=== PATIENT | female | born 1970 | race Caucasian/White ===

== ENCOUNTER 2019-11-20 23:04 | Observation (INO) | payer BC ==
[~2019-11-20] VITALS: Ht 170.2 cm; Wt 78.5 kg
[2019-11-20 14:30] VITALS: BP 136/92
--- NOTE | 2019-11-20 23:17 | PHYS DOC ---
Adult General HPI HPI 49-year-old female presents to the emergency department with complaints of syncope. [place] and subsequently became short of breath, nauseous, dizzy and weak. states she passed out for approximately 30 seconds. She denies any fever or abdominal discomfort at this time however states she thinks she has urinary tract infection. Blood pressure currently 106/65, heart rate 75. Nothing makes her symptoms worse, nothing makes her symptoms better on exam. Patient denies headache or visual changes at this time. Review of Systems Review of Systems Constitutional: Denies fever or chills [] Respiratory: Denies cough or shortness of breath [] Cardiovascular: No additional information not addressed in HPI [] GI: Denies abdominal pain, nausea, vomiting, bloody stools or diarrhea [] : + dysuria Musculoskeletal: Denies back pain or joint pain [] Integument: Denies rash or skin lesions [] Neurologic: Denies headache, focal weakness or sensory changes [] All other systems were reviewed and found to be within normal limits, except as documented in this note. Current Medications Current Medications Current Medications Medications (Trade) Dose Ordered Sig/Hernán Start Time Stop Time Status Last Admin Dose Admin Potassium Chloride (Klor-Con) 40 meq 1X ONCE 11/21/19 02:00 11/21/19 02:01 Sodium Chloride 1,000 ml @ 1,000 mls/hr 1X ONCE 11/21/19 01:30 11/21/19 02:29 11/21/19 01:26 1,000 MLS/HR Allergies Allergies Allergies Coded Allergies Type Severity Reaction Last Updated Verified Iodinated Contrast Media Adverse Reaction Intermediate 11/21/19 Yes Penicillins Adverse Reaction Intermediate 11/21/19 Yes Sulfa (Sulfonamide Antibiotics) Adverse Reaction Intermediate 11/21/19 Yes Physical Exam Physical Exam Constitutional: Well developed, well nourished, pale, non-toxic appearance. [] HENT: Normocephalic, atraumatic, bilateral external ears normal, oropharynx moist, no oral exudates, nose normal. [] Eyes: PERRLA, EOMI, conjunctiva normal, no discharge. [] Cardiovascular:Heart rate regular rhythm, no murmur [] Lungs & Thorax: Bilateral breath sounds clear to auscultation [] Abdomen: Bowel sounds normal, soft, no tenderness, no masses, no pulsatile masses. [] Skin: Warm, dry, no erythema, no rash. [] Back: No tenderness, no CVA tenderness. [] Extremities: No tenderness, no edema. [] Neurologic: Alert and oriented X 3, no focal deficits noted. [] Psychologic: Affect normal, judgement normal, mood normal. [] Current Patient Data Vital Signs Vital Signs Date Time Temp Pulse Resp B/P (MAP) Pulse Ox O2 Delivery O2 Flow Rate FiO2 11/21/19 00:30 80 15 97 Room Air 11/21/19 00:00 109/74 (86) 11/20/19 23:05 98.8 98.8 Lab Values Laboratory Tests Test 11/20/19 23:15 11/21/19 00:21 White Blood Count 9.8 x10^3/uL (4.0-11.0) Red Blood Count 4.32 x10^6/uL (3.50-5.40) Hemoglobin 12.9 g/dL (12.0-15.5) Hematocrit 38.6 % (36.0-47.0) Mean Corpuscular Volume 89 fL (79-100) Mean Corpuscular Hemoglobin 30 pg (25-35) Mean Corpuscular Hemoglobin Concent 33 g/dL (31-37) Red Cell Distribution Width 13.2 % (11.5-14.5) Platelet Count 255 x10^3/uL (140-400) Neutrophils (%) (Auto) 34 % (31-73) Lymphocytes (%) (Auto) 51 % (24-48) H Monocytes (%) (Auto) 8 % (0-9) Eosinophils (%) (Auto) 7 % (0-3) H Basophils (%) (Auto) 0 % (0-3) Neutrophils # (Auto) 3.3 x10^3/uL (1.8-7.7) Lymphocytes # (Auto) 5.0 x10^3/uL (1.0-4.8) H Monocytes # (Auto) 0.8 x10^3/uL (0.0-1.1) Eosinophils # (Auto) 0.7 x10^3/uL (0.0-0.7) Basophils # (Auto) 0.0 x10^3/uL (0.0-0.2) Lactic Acid Level 2.7 mmol/L (0.4-2.0) H D-Dimer (Anel) < 0.27 ug/mlFEU Sodium Level 146 mmol/L (136-145) H Potassium Level 2.7 mmol/L (3.5-5.1) *L Chloride Level 112 mmol/L (98-107) H Carbon Dioxide Level 26 mmol/L (21-32) Anion Gap 8 (6-14) Blood Urea Nitrogen 11 mg/dL (7-20) Creatinine 0.6 mg/dL (0.6-1.0) Estimated GFR (Cockcroft-Gault) 105.4 BUN/Creatinine Ratio 18 (6-20) Glucose Level 83 mg/dL (70-99) Calcium Level 7.2 mg/dL (8.5-10.1) L Total Bilirubin 0.1 mg/dL (0.2-1.0) L Aspartate Amino Transferase (AST) 13 U/L (15-37) L Alanine Aminotransferase (ALT) 14 U/L (14-59) Alkaline Phosphatase 60 U/L (46-116) Total Protein 5.5 g/dL (6.4-8.2) L Albumin 2.8 g/dL (3.4-5.0) L Albumin/Globulin Ratio 1.0 (1.0-1.7) Laboratory Tests 11/20/19 23:15 Laboratory Tests 11/21/19 00:21 EKG EKG EKG reviewed 2340, NSR, LAD, NO STEMI[] Radiology/Procedures Radiology/Procedures [] Course & Med Decision Making Course & Med Decision Making Pertinent Labs and Imaging studies reviewed. (See chart for details) []49-year-old female presents to the emergency department with complaints of syncope. Patient [place] and subsequentl y became short of breath, nauseous, dizzy and weak. states she passed out for approximately 30 seconds. She denies any fever or abdominal discomfort at this time however states she thinks she has urinary tract infection. Blood pressure currently 106/65, heart rate 75. Nothing makes her symptoms worse, nothing makes her symptoms better on exam. Patient denies headache or visual changes at this time. Dragon Disclaimer Dragon Disclaimer This electronic medical record was generated, in whole or in part, using a voice recognition dictation system. Departure Departure Impression: Primary Impression: Syncope and collapse Additional Impressions: Hypokalemia Lactic acidosis Disposition: ADMITTED INPATIENT Admitting Physician: LISA Condition: IMPROVED Problem Qualifiers HERMANN MAN MD Nov 20, 2019 23:16
[2019-11-20 23:41] LABS: BASO % 0 % (0-3); EOS # 0.7 x10^3/uL (0.0-0.7); EOS % 7 % (0-3); HEMATOCRIT 38.6 % (36.0-47.0); HEMOGLOBIN 12.9 g/dL (12.0-15.5); LYMPH % 51 % (24-48); MEAN CORPUSCULAR HEMOGLOBIN 30 pg (25-35); MEAN CORPUSCULAR HGB CONC 33 g/dL (31-37); MEAN CORPUSCULAR VOLUME 89 fL (79-100); MONO # 0.8 x10^3/uL (0.0-1.1); MONO % 8 % (0-9); NEUT # 3.3 x10^3/uL (1.8-7.7); NEUT % 34 % (31-73); PLATELET COUNT 255 x10^3/uL (140-400); RED BLOOD COUNT 4.32 x10^6/uL (3.50-5.40); RED CELL DISTRIBUTION WIDTH 13.2 % (11.5-14.5); WHITE BLOOD COUNT 9.8 x10^3/uL (4.0-11.0)
[2019-11-21] VITALS (9 sets, daily range): BP systolic 132–148; BP diastolic 73–95
[2019-11-21] MEDS ORDERED: IV NORMAL SALINE 1000ML BAG 1,000 ML IV ONE ×2 (00:30→01:30)
[2019-11-21 01:22] LABS: ALBUMIN 2.8 g/dL (3.4-5.0); CALCIUM 7.2 mg/dL (8.5-10.1); CREATININE 0.6 mg/dL (0.6-1.0); GFR 105.4; TOTAL BILIRUBIN 0.1 mg/dL (0.2-1.0); TOTAL PROTEIN 5.5 g/dL (6.4-8.2)
[2019-11-21 01:24] LABS: POTASSIUM 2.7 mmol/L (3.5-5.1)
[2019-11-21] MEDS ORDERED: POTASSIUM CHLORIDE 20 MEQ TABLET.ER. PO ONE (02:00)
[2019-11-21] MEDS ORDERED: ONDANSETRON PF 4 MG/2 ML VIAL. IV PRN ×2 (02:00→14:00)
[2019-11-21] MEDS ORDERED: ACETAMINOPHEN 325 MG TABLET. PO PRN ×2 (02:00→14:00)
[2019-11-21 02:07] LABS: BILIRUBIN,URINE NEGATIVE (NEG); CLARITY,URINE CLEAR; COLOR,URINE YELLOW; NITRITE,URINE NEGATIVE (NEG); PROTEIN,URINE NEGATIVE (NEG-TRACE); UROBILINOGEN,URINE 0.2 mg/dL (0.2 mg/dL)
[2019-11-21 02:12] LABS: SQUAMOUS EPITHELIAL CELL,UR MOD /LPF
[2019-11-21 02:14] LABS: BACTERIA,URINE FEW /HPF (0-FEW); RBC,URINE RARE /HPF (0-2)
[2019-11-21] MEDS ORDERED: CIPROFLOXACIN HCL 250 MG TABLET. PO ONE (03:00)
[2019-11-21] MEDS ORDERED: ALPRAZolam 0.5 MG TABLET PO ONE (03:30)
[2019-11-21] MEDS ORDERED: MAGNESIUM SULFATE 2GM 50 ML IV ONE (09:00)
[2019-11-21] MEDS: KETOROLAC 30 MG/ML VIAL. IVP PRN ×2 (09:13→20:40)
--- NOTE | 2019-11-21 10:13 | PDOC1 ---
History and Physical Date of Admission Date of Admission DATE: 11/21/19 TIME: 10:12 Identification/Chief Complaint Chief Complaint seen in er , 49-year-old female presents to the emergency department with complaints of syncope. Patient [place] and subsequently became short of breath, nauseous, dizzy and weak. JUST ATE AND CONSUMED ETOH states she passed out for approximately 30 seconds. She denies any fever or abdominal discomfort at this time however states she thinks she has urinary tract infection. Blood pressure currently 106/65, heart rate 75. Nothing makes her symptoms worse, nothing makes her symptoms better on exam. Patient denies headache or visual changes SHE HAD 3 MARGARITAS 30 MIN BEFORE SYNCOPAL EVENT NO BLADDER OR BOWEL INCONTINENCE, did not bite her tongue, no known hx seizures., passed out at [facility] 6 MO AGO after standing in line Past Medical History Past Medical History GI: GERD Hepatobiliary: No pertinent hx Family History Family History: High Cholestrol Social History Smoke: <1 pack per day ALCOHOL: social Drugs: None Current Problem List Problem List Problems Medical Problems: (1) Hypokalemia Status: Acute (2) Lactic acidosis Status: Acute (3) Syncope and collapse Status: Acute Current Medications Current Medications Current Medications Sodium Chloride 1,000 ml @ 1,000 mls/hr 1X ONCE IV Last administered on 11/20/19at 23:30; Start 11/21/19 at 00:30; Stop 11/21/19 at 01:29; Status DC Sodium Chloride 1,000 ml @ 1,000 mls/hr 1X ONCE IV Last administered on 11/21/19at 01:26; Start 11/21/19 at 01:30; Stop 11/21/19 at 02:29; Status DC Potassium Chloride (Klor-Con) 40 meq 1X ONCE PO Last administered on 11/21/19at 02:09; Start 11/21/19 at 02:00; Stop 11/21/19 at 02:01; Status DC Ondansetron HCl (Zofran) 4 mg PRN Q8HRS PRN IV NAUSEA/VOMITING 1ST CHOICE; Start 11/21/19 at 02:00; Stop 11/22/19 at 01:59 Acetaminophen (Tylenol) 650 mg PRN Q4HRS PRN PO FEVER Last administered on 11/21/19at 02:09; Start 11/21/19 at 02:00; Stop 11/22/19 at 01:59 Ciprofloxacin (Cipro) 500 mg BID ONCE PO Last administered on 11/21/19at 03:25; Start 11/21/19 at 03:00; Stop 11/21/19 at 03:01; Status DC Alprazolam (Xanax) 0.5 mg 1X ONCE PO Last administered on 11/21/19at 03:25; Start 11/21/19 at 03:30; Stop 11/21/19 at 03:31; Status DC Ketorolac Tromethamine (Toradol 30mg Vial) 30 mg PRN Q8HRS PRN IVP PAIN Last administered on 11/21/19at 09:13; Start 11/21/19 at 08:15; Stop 11/26/19 at 08:14 Magnesium Sulfate 50 ml @ 25 mls/hr 1X ONCE IV Last administered on 11/21/19at 09:17; Start 11/21/19 at 09:00; Stop 11/21/19 at 10:59 Allergies Allergies: Coded Allergies: egg (Verified Allergy, Severe, 11/21/19) shellfish derived (Verified Allergy, Severe, Swelling, 11/21/19) Iodinated Contrast Media (Verified Adverse Reaction, Intermediate, 11/21/19) Penicillins (Verified Adverse Reaction, Intermediate, 11/21/19) Sulfa (Sulfonamide Antibiotics) (Verified Adverse Reaction, Intermediate, 11/21/19) ROS Review of System Review of Systems Review of Systems Constitutional: Denies fever or chills [] Respiratory: Denies cough or shortness of breath [] Cardiovascular: No additional information not addressed in HPI [] GI: Denies abdominal pain, nausea, vomiting, bloody stools or diarrhea [] : + dysuria Musculoskeletal: Denies back pain or joint pain [] Integument: Denies rash or skin lesions [] Neurologic: Denies headache, focal weakness or sensory changes [] 14 PT systems were reviewed and found to be within normal limits, except as do cumented General: YES: Fatigue; No: Chills, Night Sweats, Malaise, Appetite, Other PSYCHOLOGICAL ROS: No: Anxiety, Behavioral Disorder, Concentration difficultie, Decreased libido, Depression, Disorientation, Hallucinations, Hostility, Irritablity, Memory difficulties, Mood Swings, Obsessive thoughts, Physical abuse, Sexual abuse, Sleep disturbances, Suicidal ideation, Other Gastrointestinal: No Nausea, No Vomiting, No Abdominal Pain, No Diarrhea, No Constipation, No Melena, No Hematochezia, No Other Physical Exam Physical Exam Physical Exam Physical Exam Constitutional: Well developed, well nourished, pale, non-toxic appearance. [] HENT: Normocephalic, atraumatic, bilateral external ears normal, oropharynx moist, no oral exudates, nose normal. [] Eyes: PERRLA, EOMI, conjunctiva normal, no discharge. [] Cardiovascular:Heart rate regular rhythm, no murmur [] Lungs & Thorax: Bilateral breath sounds clear to auscultation [] Abdomen: Bowel sounds normal, soft, no tenderness, no masses, no pulsatile masses. [] Skin: Warm, dry, no erythema, no rash. [] Back: No tenderness, no CVA tenderness. [] Extremities: No tenderness, no edema. [] Neurologic: Alert and oriented X 3, no focal deficits noted. [] Psychologic: Affect normal, judgment normal, mood normal. [] General: Alert, Oriented X3, Cooperative, No acute distress HEENT: EOMI Lungs: Clear to auscultation Heart: RRR Breasts: Not examined PELVIC: Examination not indicated Extremities: No cyanosis Neuro: Cranial nerves 3-12 NL Vitals Vitals Vital Signs Date Time Temp Pulse Resp B/P (MAP) Pulse Ox O2 Delivery O2 Flow Rate FiO2 11/21/19 07:26 98.2 86 14 138/84 (102) 95 Room Air 98.2 Labs Labs Laboratory Tests Test 11/20/19 23:15 11/21/19 00:21 11/21/19 01:55 11/21/19 02:37 White Blood Count 9.8 x10^3/uL (4.0-11.0) Red Blood Count 4.32 x10^6/uL (3.50-5.40) Hemoglobin 12.9 g/dL (12.0-15.5) Hematocrit 38.6 % (36.0-47.0) Mean Corpuscular Volume 89 fL (79-100) Mean Corpuscular Hemoglobin 30 pg (25-35) Mean Corpuscular Hemoglobin Concent 33 g/dL (31-37) Red Cell Distribution Width 13.2 % (11.5-14.5) Platelet Count 255 x10^3/uL (140-400) Neutrophils (%) (Auto) 34 % (31-73) Lymphocytes (%) (Auto) 51 % (24-48) Monocytes (%) (Auto) 8 % (0-9) Eosinophils (%) (Auto) 7 % (0-3) Basophils (%) (Auto) 0 % (0-3) Neutrophils # (Auto) 3.3 x10^3/uL (1.8-7.7) Lymphocytes # (Auto) 5.0 x10^3/uL (1.0-4.8) Monocytes # (Auto) 0.8 x10^3/uL (0.0-1.1) Eosinophils # (Auto) 0.7 x10^3/uL (0.0-0.7) Basophils # (Auto) 0.0 x10^3/uL (0.0-0.2) Lactic Acid Level 2.7 mmol/L (0.4-2.0) 0.7 mmol/L (0.4-2.0) D-Dimer (Anel) < 0.27 ug/mlFEU Sodium Level 146 mmol/L (136-145) Potassium Level 2.7 mmol/L (3.5-5.1) Chloride Level 112 mmol/L (98-107) Carbon Dioxide Level 26 mmol/L (21-32) Anion Gap 8 (6-14) Blood Urea Nitrogen 11 mg/dL (7-20) Creatinine 0.6 mg/dL (0.6-1.0) Estimated GFR (Cockcroft-Gault) 105.4 BUN/Creatinine Ratio 18 (6-20) Glucose Level 83 mg/dL (70-99) Calcium Level 7.2 mg/dL (8.5-10.1) Magnesium Level 1.4 mg/dL (1.8-2.4) Total Bilirubin 0.1 mg/dL (0.2-1.0) Aspartate Amino Transf (AST/SGOT) 13 U/L (15-37) Alanine Aminotransferase (ALT/SGPT) 14 U/L (14-59) Alkaline Phosphatase 60 U/L (46-116) Troponin I Quantitative < 0.017 ng/mL (0.000-0.055) Total Protein 5.5 g/dL (6.4-8.2) Albumin 2.8 g/dL (3.4-5.0) Albumin/Globulin Ratio 1.0 (1.0-1.7) Urine Collection Type Unknown Urine Color Yellow Urine Clarity Clear Urine pH 7.0 Urine Specific [place] 1.015 Urine Protein Negative mg/dL (NEG-TRACE) Urine Glucose (UA) Negative mg/dL (NEG) Urine Ketones (Stick) Negative mg/dL (NEG) Urine Blood Negative (NEG) Urine Nitrite Negative (NEG) Urine Bilirubin Negative (NEG) Urine Urobilinogen Dipstick 0.2 mg/dL (0.2 mg/dL) Urine Leukocyte Esterase Small (NEG) Urine RBC Rare /HPF (0-2) Urine WBC 11-20 /HPF (0-4) Urine Squamous Epithelial Cells Mod /LPF Urine Bacteria Few /HPF (0-FEW) Urine Mucus Mod /LPF Laboratory Tests Test 11/20/19 23:15 11/21/19 00:21 11/21/19 01:55 11/21/19 02:37 White Blood Count 9.8 x10^3/uL (4.0-11.0) Red Blood Count 4.32 x10^6/uL (3.50-5.40) Hemoglobin 12.9 g/dL (12.0-15.5) Hematocrit 38.6 % (36.0-47.0) Mean Corpuscular Volume 89 fL (79-100) Mean Corpuscular Hemoglobin 30 pg (25-35) Mean Corpuscular Hemoglobin Concent 33 g/dL (31-37) Red Cell Distribution Width 13.2 % (11.5-14.5) Platelet Count 255 x10^3/uL (140-400) Neutrophils (%) (Auto) 34 % (31-73) Lymphocytes (%) (Auto) 51 % (24-48) Monocytes (%) (Auto) 8 % (0-9) Eosinophils (%) (Auto) 7 % (0-3) Basophils (%) (Auto) 0 % (0-3) Neutrophils # (Auto) 3.3 x10^3/uL (1.8-7.7) Lymphocytes # (Auto) 5.0 x10^3/uL (1.0-4.8) Monocytes # (Auto) 0.8 x10^3/uL (0.0-1.1) Eosinophils # (Auto) 0.7 x10^3/uL (0.0-0.7) Basophils # (Auto) 0.0 x10^3/uL (0.0-0.2) Lactic Acid Level 2.7 mmol/L (0.4-2.0) 0.7 mmol/L (0.4-2.0) D-Dimer (Anel) < 0.27 ug/mlFEU Sodium Level 146 mmol/L (136-145) Potassium Level 2.7 mmol/L (3.5-5.1) Chloride Level 112 mmol/L (98-107) Carbon Dioxide Level 26 mmol/L (21-32) Anion Gap 8 (6-14) Blood Urea Nitrogen 11 mg/dL (7-20) Creatinine 0.6 mg/dL (0.6-1.0) Estimated GFR (Cockcroft-Gault) 105.4 BUN/Creatinine Ratio 18 (6-20) Glucose Level 83 mg/dL (70-99) Calcium Level 7.2 mg/dL (8.5-10.1) Magnesium Level 1.4 mg/dL (1.8-2.4) Total Bilirubin 0.1 mg/dL (0.2-1.0) Aspartate Amino Transf (AST/SGOT) 13 U/L (15-37) Alanine Aminotransferase (ALT/SGPT) 14 U/L (14-59) Alkaline Phosphatase 60 U/L (46-116) Troponin I Quantitative < 0.017 ng/mL (0.000-0.055) Total Protein 5.5 g/dL (6.4-8.2) Albumin 2.8 g/dL (3.4-5.0) Albumin/Globulin Ratio 1.0 (1.0-1.7) Urine Collection Type Unknown Urine Color Yellow Urine Clarity Clear Urine pH 7.0 Urine Specific [place] 1.015 Urine Protein Negative mg/dL (NEG-TRACE) Urine Glucose (UA) Negative mg/dL (NEG) Urine Ketones (Stick) Negative mg/dL (NEG) Urine Blood Negative (NEG) Urine Nitrite Negative (NEG) Urine Bilirubin Negative (NEG) Urine Urobilinogen Dipstick 0.2 mg/dL (0.2 mg/dL) Urine Leukocyte Esterase Small (NEG) Urine RBC Rare /HPF (0-2) Urine WBC 11-20 /HPF (0-4) Urine Squamous Epithelial Cells Mod /LPF Urine Bacteria Few /HPF (0-FEW) Urine Mucus Mod /LPF VTE Prophylaxis Ordered VTE Prophylaxis Devices: Yes VTE Pharmacological Prophylaxi: Yes Assessment/Plan Assessment/Plan Impression: Syncope and collapse likely etoh related ALCOHOL OVER INDULGENCE Hypokalemia Lactic acidosis ORTHOSTASIS tobacco abuse disorder ADMITTED CT HEAD Neurology [id number] tele neurochecks q 4 hrs dvt prophylaxis orthostatic bp bid iv fluid support RAYMON MELVIN MD Nov 21, 2019 10:13
--- NOTE | 2019-11-21 10:19 | EKG ---
[facility] [address] [place] [address] Test Date: 2019-11-20 Test Time: 23:36:58 Pat Name: ENMANUEL CORLEY Department: Room: Gender: F Bank Advisor: : [id number] Requested By: HERMANN MAN Order Number: [id number] Reading MD: Measurements Intervals [place] Rate: 72 P: 56 NC: 164 QRS: -31 QRSD: 96 T: 54 QT: 412 QTc: 453 Interpretive Statements SINUS RHYTHM ABNORMAL LEFT AXIS DEVIATION QRS(T) CONTOUR ABNORMALITY CONSIDER ANTEROSEPTAL MYOCARDIAL DAMAGE CONSIDER INFERIOR MYOCARDIAL DAMAGE ABNORMAL ECG RI6.01 No previous ECG available for comparison
[2019-11-21] MEDS ORDERED: ALPR0.5T PO (12:19)
[2019-11-21] MEDS ORDERED: ALPRAZolam 0.5 MG TABLET PO SCH (13:00)
[2019-11-21] MEDS ORDERED: 0.9 % SODIUM CHLORIDE 10 ML DISP.SYRIN. IV PRN (14:00)
[2019-11-21] MEDS ORDERED: DOCUSATE SODIUM 100 MG CAPSULE. PO PRN (14:00)
[2019-11-21] MEDS ORDERED: MAG HYDROX/ALUMINUM HYD/SIMETH 30 ML ORAL.SUSP PO PRN (14:00)
[2019-11-21] MEDS ORDERED: ALBUTEROL SULFATE 2.5 MG/3 ML NEBU. NEB PRN (14:00)
[2019-11-21] MEDS ORDERED: guaiFENesin ORAL 200 MG/10 ML LIQUID. PO PRN (14:00)
[2019-11-21] MEDS ORDERED: ENOXAPARIN 40 MG/0.4 ML SYRINGE. SQ SCH (14:00)
--- NOTE | 2019-11-21 14:59 | RAD ---
EXAM: CT Head without IV contrast CLINICAL HISTORY: Syncope, found down COMPARISON: None. TECHNIQUE: Routine CT of the head without contrast. Soft tissues and bone windows were reviewed. PQRS compliance statement - One or more of the following individualized dose reduction techniques were utilized for this study: 1. Automated exposure control 2. Adjustment of the mA and/or kV according to patient size 3. Use of iterative reconstruction technique FINDINGS: There is no evidence of hemorrhage, mass or extra-axial fluid collection. Richardson-white differentiation is maintained with no evidence of edema. There is no mass effect or shift of the intracranial structures. The ventricles, basilar cisterns and cortical sulci are normal in size and configuration for the patients stated age. The cerebellum and brainstem are unremarkable. The calvarium demonstrates no evidence of fracture or focal lesion. There is normal aeration of the visualized paranasal sinuses and mastoid air cells. The visualized portions of the orbits are normal. IMPRESSION: No evidence for acute intracranial process. Electronically signed by: Anoop Jones MD (11/21/2019 2:56 PM) [id number]
--- NOTE | 2019-11-21 15:28 | PDOC2 ---
NEUROLOGY CONSULT Date of Admission Date of Admission DATE: 11/21/19 TIME: 15:15 Reason for Consult Reason for Consult: IMPRESSION: Syncope. Hypotension event, BP 70/40 mmHg. Lactic acidosis. Hypokalemia. UTI. Seizure evaluation, but no epileptic seizure found at the present time. Smoking. Over weight. RECOMMENDATIONS/PLAN: HCT is performed and is negative. Lab: see orders. Ortho HR and BP unremarkable. Consulted cardiology. EEG as out patient base and FU with Neurology. Discussed with her at bedside on 11/21/19. HISTORY OF THE PRESENT ILLNESS: This is a 49-year-old female patient who was brought to the ER of [facility] due to a syncopal spell and hypotension event. Per her , [place] [employer] [place] and subsequently became short of breath, nauseous, dizzy and weak. JUST ATE AND CONSUMED ETOH states she passed out for approximately 30 seconds or less than a minute as eyes open unresponsive sitting in chair floopy likely. She had significant sweating after syncopal episode. No sensory or motor deficits. No seizure nor postictal state. Her BP was said 70/40s. Her reported that she had a similar episode about 2/5 years ago. Past Medical History GI: GERD Hepatobiliary: No pertinent hx Family History High Cholestrol Social History Smoke: <1 pack per day ALCOHOL: social Drugs: denied. Allergies Coded Allergies: egg (Verified Allergy, Severe, 11/21/19) shellfish derived (Verified Allergy, Severe, Swelling, 11/21/19) Iodinated Contrast Media (Verified Adverse Reaction, Intermediate, 11/21/19) Penicillins (Verified Adverse Reaction, Intermediate, 11/21/19) Sulfa (Sulfonamide Antibiotics) (Verified Adverse Reaction, Intermediate, 11/21/19) PAST SURGERY HISTORY: No major surgery recently. MEDICATIONS: Refer to MAR REVIEW OF SYSTEMS: Constitutional: No malnutrition, weight loss, cachexia. Head: No traumatic brain or head injury. Skin: No edema, or rash. Ear: No infection. Eyes: No vision loss or color blindness. Nose: No bleeding or purulent discharges. Hearing: No hearing decrease. Neck: No injury. Breast: No history of cancer, masses,or discharges. Cardiac: No CT, arrhythmia,claudication. Pulmonary: Smoking. GI: GERD. Urinary/genital: UTI. Endocrinologic: No cousin face, craniofacial dysmorphism, polydactyly. Skeletomuscular: No muscular atrophy, deformity. Neurological: see HP. Psychiatric: Denies drug use/abuse. Otherwise, not [id number] review of systems. PHYSICAL EXAMINATION: General appearance is in subacute distress. HEENT: Normocephalic and nontraumatic. Eyes, nose, ears, and throat are unremarkable. Neck is supple. No lymphadenopathy. No bruits are heard over the carotid artery. No crepitus. Cardiovascular: S1, S2, regular rate and rhythm. Pulmonary: Clear to auscultation bilaterally. Abdomen: Bowel sounds are positive. Extremities: No rash, lesions, or edema. No restriction of range of motion NEUROLOGICAL EXAMINATION: Alert Oriented to time, place and person. PERRL. EOMI. CN: no focal findings. Muscle tone: within normal. Muscle strength: 5 DTR: 2 Plantar reflex: Flexor response bilaterally Gait: not examined in bed. Sensory exam: no abnormal findings. No cerebellar signs elicited. F-T-N test accurate. Current Medications Current Medications Current Medications Sodium Chloride 1,000 ml @ 1,000 mls/hr 1X ONCE IV Last administered on 11/20/19at 23:30; Start 11/21/19 at 00:30; Stop 11/21/19 at 01:29; Status DC Sodium Chloride 1,000 ml @ 1,000 mls/hr 1X ONCE IV Last administered on 11/21/19at 01:26; Start 11/21/19 at 01:30; Stop 11/21/19 at 02:29; Status DC Potassium Chloride (Klor-Con) 40 meq 1X ONCE PO Last administered on 11/21/19at 02:09; Start 11/21/19 at 02:00; Stop 11/21/19 at 02:01; Status DC Ondansetron HCl (Zofran) 4 mg PRN Q8HRS PRN IV NAUSEA/VOMITING 1ST CHOICE; Start 11/21/19 at 02:00; Stop 11/21/19 at 13:51; Status DC Acetaminophen (Tylenol) 650 mg PRN Q4HRS PRN PO FEVER Last administered on 11/21/19at 02:09; Start 11/21/19 at 02:00; Stop 11/21/19 at 13:51; Status DC Ciprofloxacin (Cipro) 500 mg BID ONCE PO Last administered on 11/21/19at 03:25; Start 11/21/19 at 03:00; Stop 11/21/19 at 03:01; Status DC Alprazolam (Xanax) 0.5 mg 1X ONCE PO Last administered on 11/21/19at 03:25; Start 11/21/19 at 03:30; Stop 11/21/19 at 03:31; Status DC Ketorolac Tromethamine (Toradol 30mg Vial) 30 mg PRN Q8HRS PRN IVP PAIN Last administered on 11/21/19at 09:13; Start 11/21/19 at 08:15; Stop 11/26/19 at 08:14 Magnesium Sulfate 50 ml @ 25 mls/hr 1X ONCE IV Last administered on 11/21/19at 09:17; Start 11/21/19 at 09:00; Stop 11/21/19 at 10:59; Status DC Alprazolam (Xanax) 0.5 mg BID PO ; Start 11/21/19 at 13:00 Sodium Chloride (Normal Saline Flush) 3 ml QSHIFT PRN IV AFTER MEDS AND BLOOD DRAWS; Start 11/21/19 at 14:00 Sodium Chloride 1,000 ml @ 100 mls/hr Q10H IV ; Start 11/21/19 at 13:47 Ondansetron HCl (Zofran) 4 mg PRN Q4HRS PRN IV NAUSEA/VOMITING; Start 11/21/19 at 14:00 Acetaminophen (Tylenol) 650 mg PRN Q4HRS PRN PO TEMP OVER 100.4F OR MILD PAIN; Start 11/21/19 at 14:00 Al Hydroxide/Mg Hydroxide (Mylanta Plus Xs) 30 ml PRN DAILY PRN PO HEARTBURN / GAS; Start 11/21/19 at 14:00 Docusate Sodium (Colace) 100 mg PRN BID PRN PO CONSTIPATION; Start 11/21/19 at 14:00 Albuterol Sulfate (Ventolin Neb Soln) 2.5 mg PRN Q4HRS PRN NEB SHORTNESS OF BREATH; Start 11/21/19 at 14:00 Guaifenesin (Robitussin) 200 mg PRN Q4HRS PRN PO COUGH; Start 11/21/19 at 14:00 Enoxaparin Sodium (Lovenox 40mg Syringe) 40 mg Q24H SQ ; Start 11/21/19 at 14:00 Active Scripts Active Reported Xanax (Alprazolam) 0.5 Mg Tablet 1 Tab PO BID Allergies Allergies: Allergies Coded Allergies Type Severity Reaction Last Updated Verified egg Allergy Severe 11/21/19 Yes shellfish derived Allergy Severe Swelling 11/21/19 Yes Iodinated Contrast Media Adverse Reaction Intermediate 11/21/19 Yes Penicillins Adverse Reaction Intermediate 11/21/19 Yes Sulfa (Sulfonamide Antibiotics) Adverse Reaction Intermediate 11/21/19 Yes ROS Review of System The patient denies any associated fevers, chills, headache, ear pain, rhinorrhea, sore throat, stiff neck, productive cough, chest pain, shortness of breath, back or flank pain, abdominal pain, nausea, vomiting, diarrhea, constipation, dysuria, rash, numbness, weakness, tingling, incontinence, difficulty ambulating, or diaphoresis. Physical Exam Physical Exam General: Well developed, well nourished, no acute distress, well appearing HEENT: Pupils equally round and reactive to light, EOMI, no discharge, normal conjunctiva Neck: Supple, no nuchal rigidity, no JVD, trachea midline, no tenderness Cardiac: RRR, no murmurs, no gallops, no rubs Chest/Lungs: CTAB, no wheeze, no rhonchi, no crackles Abdomen: soft, non-distended, no guarding, no peritoneal signs, non-tender Back: No tenderness Extremities: no edema, pulses intact, non-tender,capillary refill <3 sec bi lateral upper and lower extremities, Neuro: Alert and oriented x 4, no focal deficits, normal speech Vitals Vitals: Vital Signs Date Time Temp Pulse Resp B/P (MAP) Pulse Ox O2 Delivery O2 Flow Rate FiO2 11/21/19 11:20 98.1 80 16 146/95 (112) 95 Room Air 98.1 Labs Labs Laboratory Tests Test 11/20/19 23:15 11/21/19 00:21 11/21/19 01:55 11/21/19 02:37 White Blood Count 9.8 x10^3/uL (4.0-11.0) Red Blood Count 4.32 x10^6/uL (3.50-5.40) Hemoglobin 12.9 g/dL (12.0-15.5) Hematocrit 38.6 % (36.0-47.0) Mean Corpuscular Volume 89 fL (79-100) Mean Corpuscular Hemoglobin 30 pg (25-35) Mean Corpuscular Hemoglobin Concent 33 g/dL (31-37) Red Cell Distribution Width 13.2 % (11.5-14.5) Platelet Count 255 x10^3/uL (140-400) Neutrophils (%) (Auto) 34 % (31-73) Lymphocytes (%) (Auto) 51 % (24-48) Monocytes (%) (Auto) 8 % (0-9) Eosinophils (%) (Auto) 7 % (0-3) Basophils (%) (Auto) 0 % (0-3) Neutrophils # (Auto) 3.3 x10^3/uL (1.8-7.7) Lymphocytes # (Auto) 5.0 x10^3/uL (1.0-4.8) Monocytes # (Auto) 0.8 x10^3/uL (0.0-1.1) Eosinophils # (Auto) 0.7 x10^3/uL (0.0-0.7) Basophils # (Auto) 0.0 x10^3/uL (0.0-0.2) Lactic Acid Level 2.7 mmol/L (0.4-2.0) 0.7 mmol/L (0.4-2.0) D-Dimer (Anel) < 0.27 ug/mlFEU Sodium Level 146 mmol/L (136-145) Potassium Level 2.7 mmol/L (3.5-5.1) Chloride Level 112 mmol/L (98-107) Carbon Dioxide Level 26 mmol/L (21-32) Anion Gap 8 (6-14) Blood Urea Nitrogen 11 mg/dL (7-20) Creatinine 0.6 mg/dL (0.6-1.0) Estimated GFR (Cockcroft-Gault) 105.4 BUN/Creatinine Ratio 18 (6-20) Glucose Level 83 mg/dL (70-99) Calcium Level 7.2 mg/dL (8.5-10.1) Magnesium Level 1.4 mg/dL (1.8-2.4) Total Bilirubin 0.1 mg/dL (0.2-1.0) Aspartate Amino Transf (AST/SGOT) 13 U/L (15-37) Alanine Aminotransferase (ALT/SGPT) 14 U/L (14-59) Alkaline Phosphatase 60 U/L (46-116) Troponin I Quantitative < 0.017 ng/mL (0.000-0.055) Total Protein 5.5 g/dL (6.4-8.2) Albumin 2.8 g/dL (3.4-5.0) Albumin/Globulin Ratio 1.0 (1.0-1.7) Urine Collection Type Unknown Urine Color Yellow Urine Clarity Clear Urine pH 7.0 Urine Specific [place] 1.015 Urine Protein Negative mg/dL (NEG-TRACE) Urine Glucose (UA) Negative mg/dL (NEG) Urine Ketones (Stick) Negative mg/dL (NEG) Urine Blood Negative (NEG) Urine Nitrite Negative (NEG) Urine Bilirubin Negative (NEG) Urine Urobilinogen Dipstick 0.2 mg/dL (0.2 mg/dL) Urine Leukocyte Esterase Small (NEG) Urine RBC Rare /HPF (0-2) Urine WBC 11-20 /HPF (0-4) Urine Squamous Epithelial Cells Mod /LPF Urine Bacteria Few /HPF (0-FEW) Urine Mucus Mod /LPF Laboratory Tests Test 11/20/19 23:15 11/21/19 00:21 11/21/19 01:55 11/21/19 02:37 White Blood Count 9.8 x10^3/uL (4.0-11.0) Red Blood Count 4.32 x10^6/uL (3.50-5.40) Hemoglobin 12.9 g/dL (12.0-15.5) Hematocrit 38.6 % (36.0-47.0) Mean Corpuscular Volume 89 fL (79-100) Mean Corpuscular Hemoglobin 30 pg (25-35) Mean Corpuscular Hemoglobin Concent 33 g/dL (31-37) Red Cell Distribution Width 13.2 % (11.5-14.5) Platelet Count 255 x10^3/uL (140-400) Neutrophils (%) (Auto) 34 % (31-73) Lymphocytes (%) (Auto) 51 % (24-48) Monocytes (%) (Auto) 8 % (0-9) Eosinophils (%) (Auto) 7 % (0-3) Basophils (%) (Auto) 0 % (0-3) Neutrophils # (Auto) 3.3 x10^3/uL (1.8-7.7) Lymphocytes # (Auto) 5.0 x10^3/uL (1.0-4.8) Monocytes # (Auto) 0.8 x10^3/uL (0.0-1.1) Eosinophils # (Auto) 0.7 x10^3/uL (0.0-0.7) Basophils # (Auto) 0.0 x10^3/uL (0.0-0.2) Lactic Acid Level 2.7 mmol/L (0.4-2.0) 0.7 mmol/L (0.4-2.0) D-Dimer (Anel) < 0.27 ug/mlFEU Sodium Level 146 mmol/L (136-145) Potassium Level 2.7 mmol/L (3.5-5.1) Chloride Level 112 mmol/L (98-107) Carbon Dioxide Level 26 mmol/L (21-32) Anion Gap 8 (6-14) Blood Urea Nitrogen 11 mg/dL (7-20) Creatinine 0.6 mg/dL (0.6-1.0) Estimated GFR (Cockcroft-Gault) 105.4 BUN/Creatinine Ratio 18 (6-20) Glucose Level 83 mg/dL (70-99) Calcium Level 7.2 mg/dL (8.5-10.1) Magnesium Level 1.4 mg/dL (1.8-2.4) Total Bilirubin 0.1 mg/dL (0.2-1.0) Aspartate Amino Transf (AST/SGOT) 13 U/L (15-37) Alanine Aminotransferase (ALT/SGPT) 14 U/L (14-59) Alkaline Phosphatase 60 U/L (46-116) Troponin I Quantitative < 0.017 ng/mL (0.000-0.055) Total Protein 5.5 g/dL (6.4-8.2) Albumin 2.8 g/dL (3.4-5.0) Albumin/Globulin Ratio 1.0 (1.0-1.7) Urine Collection Type Unknown Urine Color Yellow Urine Clarity Clear Urine pH 7.0 Urine Specific [place] 1.015 Urine Protein Negative mg/dL (NEG-TRACE) Urine Glucose (UA) Negative mg/dL (NEG) Urine Ketones (Stick) Negative mg/dL (NEG) Urine Blood Negative (NEG) Urine Nitrite Negative (NEG) Urine Bilirubin Negative (NEG) Urine Urobilinogen Dipstick 0.2 mg/dL (0.2 mg/dL) Urine Leukocyte Esterase Small (NEG) Urine RBC Rare /HPF (0-2) Urine WBC 11-20 /HPF (0-4) Urine Squamous Epithelial Cells Mod /LPF Urine Bacteria Few /HPF (0-FEW) Urine Mucus Mod /LPF SCAR ANN MD Nov 21, 2019 15:28
[2019-11-21] MEDS ORDERED: ALPRAZolam 0.5 MG TABLET PO PRN (15:45)
[2019-11-21] MEDS: IV NORMAL SALINE 1000ML BAG 1,000 ML IV SCH ×2 (16:38→23:41)
[2019-11-21] MEDS: HYDROcodone/APAP 5/325MG 1 TAB TABLET PO PRN ×2 (16:42→23:28)
[2019-11-21 17:22] LABS: AMPHETAMINE/METHAMPHETAMINE NEG (NEG); BARBITURATES NEG (NEG); BENZODIAZEPINES POS (NEG); CANNABINOIDS NEG (NEG); COCAINE NEG (NEG); METHADONE NEG (NEG); OPIATES NEG (NEG); PHENCYCLIDINE NEG (NEG)
--- NOTE | 2019-11-21 23:43 | NUR ---
Pt request to hold the IV fluid at this time d/t swelling of bilateral hands. Pt is eating and drinking adequate fluid. IV fluid on hold at this time. Will continue to monitor pt closely.
[2019-11-22 03:00] VITALS: BP_SYST 138; BP_SYST 140; BP_SYST 142; BP_DIAS 93; BP_DIAS 95; BP_DIAS 98
[2019-11-22] MEDS: HYDROcodone/APAP 5/325MG 1 TAB TABLET PO PRN (05:57)
[2019-11-22 07:00] VITALS: BP 119/72
[2019-11-22 07:24] LABS: BASO # 0.1 x10^3/uL (0.0-0.2); BASO % 1 % (0-3); EOS # 0.7 x10^3/uL (0.0-0.7); EOS % 9 % (0-3); HEMATOCRIT 37.2 % (36.0-47.0); HEMOGLOBIN 12.4 g/dL (12.0-15.5); LYMPH % 52 % (24-48); MEAN CORPUSCULAR HEMOGLOBIN 30 pg (25-35); MEAN CORPUSCULAR HGB CONC 33 g/dL (31-37); MEAN CORPUSCULAR VOLUME 89 fL (79-100); MONO # 0.6 x10^3/uL (0.0-1.1); MONO % 8 % (0-9); NEUT # 2.3 x10^3/uL (1.8-7.7); NEUT % 31 % (31-73); PLATELET COUNT 225 x10^3/uL (140-400); RED BLOOD COUNT 4.17 x10^6/uL (3.50-5.40); RED CELL DISTRIBUTION WIDTH 13.3 % (11.5-14.5); WHITE BLOOD COUNT 7.6 x10^3/uL (4.0-11.0)
[2019-11-22 07:47] LABS: ALBUMIN 3.2 g/dL (3.4-5.0); ALBUMIN/GLOBULIN RATIO 1.1 (1.0-1.7); CALCIUM 8.4 mg/dL (8.5-10.1); CREATININE 0.8 mg/dL (0.6-1.0); GFR 75.6; POTASSIUM 4.5 mmol/L (3.5-5.1); TOTAL BILIRUBIN 0.3 mg/dL (0.2-1.0); TOTAL PROTEIN 6.1 g/dL (6.4-8.2)
[2019-11-22] MEDS: IV NORMAL SALINE 1000ML BAG 1,000 ML IV SCH (08:03)
--- NOTE | 2019-11-22 11:35 | CONS ---
DATE OF CONSULTATION: 11/22/2019 REASON FOR CONSULTATION: Syncope. HISTORY OF PRESENT ILLNESS: The patient is a pleasant 49-year-old woman who was admitted to the hospital in the setting of a syncopal episode. She apparently was in her usual state of health and was at the [facility] where she felt some lightheadedness and then probably sat down on her way out the door at a staircase and felt like she was going to throw up, and her went to grab a cup, so she can throw up and then ultimately when he came back within 20-30 seconds according to her, she was lying back unresponsive and 911 was called. Upon arrival to the ER, her blood pressure was 106/65 with a heart rate of 75. She apparently was down for about 30 seconds according to the EMS and ER notes. The patient has had a couple other episodes where she has passed out, but no trauma has occurred. Upon arrival to the ER, she was noted to have hypokalemia with a potassium of 2.7, and she was admitted for further evaluation and treatment. Her lactate was also mildly elevated. PAST MEDICAL HISTORY: 1. Dyslipidemia. 2. Prior episodes of orthostatic syncope. 3. Hypothyroidism. SOCIAL HISTORY: The patient denies any illicit drug use. She works in heating and cooling. She does use alcohol socially. ALLERGIES: IODINATED CONTRAST, PENICILLINS, SULFA, EGG, AND SHELLFISH. CURRENT CARDIOVASCULAR MEDICATIONS: None, but the patient does take Xanax as needed for anxiety issues. REVIEW OF SYSTEMS: Negative unless otherwise mentioned above in HPI. PHYSICAL EXAMINATION: GENERAL: She is alert and oriented, in no acute distress. VITAL SIGNS: Stable with a temperature of 98.8, pulse 72, respirations 12, blood pressure 108/72, and saturation 96% on room air. GENERAL: She was alert and oriented, in no acute distress. HEAD AND NECK: Unremarkable. CARDIAC: Regular rate and rhythm without any murmurs, rubs, or gallops. LUNGS: Clear to auscultation. ABDOMEN: Soft, nontender, and nondistended. EXTREMITIES: No edema with 2+ radial and dorsalis pedis pulses. NEUROLOGIC: No focal deficits. MUSCULOSKELETAL: No obvious trauma. DIAGNOSTIC STUDIES: CT of the head is unremarkable. EKG is unremarkable. LABORATORY DATA: Urinalysis is abnormal and toxicology is positive for benzos. Her cardiac enzyme is negative x 1, and her TSH was elevated at 14.9. IMPRESSION: 1. Syncope in the setting of moderate alcohol use, benzodiazepine use, and likely dehydration and urinary tract infection being present. 2. Prior history of orthostatic syncope, no obvious cardiac pathology noted. 3. Dyslipidemia. 4. Hypothyroidism. RECOMMENDATIONS: At this present time, she has a low-risk presentation for any cardiac source of syncope with a normal cardiac exam, normal EKG, and normal biomarkers. Her telemetry thus far has been completely within normal limits. At this present time, no further cardiovascular testing is necessary. She can follow up with her primary care physician. We could consider further evaluation if she has any recurrent syncope after treatment of her urinary tract infection and dehydration. Thank you for this consultation. FARHAN SOLANO MD DR: DAMIAN/jenaro JOB#: [id number] / [id number]
--- NOTE | 2019-11-22 11:40 | PDOC ---
PROGRESS NOTES History of Present Illness History of Present Illness VTE Prophylaxis Ordered VTE Prophylaxis Devices: Yes VTE Pharmacological Prophylaxi: Yes DISCHARGE DX Assessment/Plan Impression: Syncope and collapse likely etoh related ALCOHOL OVER INDULGENCE Hypokalemia Lactic acidosis SEC ETOH ORTHOSTASIS tobacco abuse disorder HYPOMAGNESEMIA ADMITTED CT HEAD Neurology [id number] OK WITH D/C tele neurochecks q 4 hrs dvt prophylaxis orthostatic bp bid iv fluid support CARDIOLOGY OK WITH D/C 11/22 EEG as out patient base and FU with Neurology. MG NOW D/C TODAY IF LABS OK D/W DR SOLANO ON UNIT D/C PLANNING 28 MIN Vitals Vitals Vital Signs Date Time Temp Pulse Resp B/P (MAP) Pulse Ox O2 Delivery O2 Flow Rate FiO2 11/22/19 08:00 Room Air 11/22/19 07:00 98.0 69 119/72 (88) 95 98.0 11/22/19 03:00 18 Physical Exam General: Alert, Oriented X3, Cooperative, No acute distress Heart: Regular rate, Normal S1 Lungs: Clear Abdomen: Normal bowel sounds, Soft, No tenderness Extremities: No cyanosis Labs LABS Laboratory Tests Test 11/21/19 15:58 11/22/19 06:45 Urine Opiates Screen Neg (NEG) Urine Methadone Screen Neg (NEG) Urine Barbiturates Neg (NEG) Urine Phencyclidine Screen Neg (NEG) Urine Amphetamine/Methamphetamine Neg (NEG) Urine Benzodiazepines Screen Pos (NEG) Urine Cocaine Screen Neg (NEG) Urine Cannabinoids Screen Neg (NEG) Urine Ethyl Alcohol Neg (NEG) White Blood Count 7.6 x10^3/uL (4.0-11.0) Red Blood Count 4.17 x10^6/uL (3.50-5.40) Hemoglobin 12.4 g/dL (12.0-15.5) Hematocrit 37.2 % (36.0-47.0) Mean Corpuscular Volume 89 fL (79-100) Mean Corpuscular Hemoglobin 30 pg (25-35) Mean Corpuscular Hemoglobin Concent 33 g/dL (31-37) Red Cell Distribution Width 13.3 % (11.5-14.5) Platelet Count 225 x10^3/uL (140-400) Neutrophils (%) (Auto) 31 % (31-73) Lymphocytes (%) (Auto) 52 % (24-48) Monocytes (%) (Auto) 8 % (0-9) Eosinophils (%) (Auto) 9 % (0-3) Basophils (%) (Auto) 1 % (0-3) Neutrophils # (Auto) 2.3 x10^3/uL (1.8-7.7) Lymphocytes # (Auto) 4.0 x10^3/uL (1.0-4.8) Monocytes # (Auto) 0.6 x10^3/uL (0.0-1.1) Eosinophils # (Auto) 0.7 x10^3/uL (0.0-0.7) Basophils # (Auto) 0.1 x10^3/uL (0.0-0.2) Sodium Level 142 mmol/L (136-145) Potassium Level 4.5 mmol/L (3.5-5.1) Chloride Level 108 mmol/L (98-107) Carbon Dioxide Level 30 mmol/L (21-32) Anion Gap 4 (6-14) Blood Urea Nitrogen 12 mg/dL (7-20) Creatinine 0.8 mg/dL (0.6-1.0) Estimated GFR (Cockcroft-Gault) 75.6 BUN/Creatinine Ratio 15 (6-20) Glucose Level 100 mg/dL (70-99) Calcium Level 8.4 mg/dL (8.5-10.1) Total Bilirubin 0.3 mg/dL (0.2-1.0) Aspartate Amino Transf (AST/SGOT) 15 U/L (15-37) Alanine Aminotransferase (ALT/SGPT) 18 U/L (14-59) Alkaline Phosphatase 70 U/L (46-116) Total Protein 6.1 g/dL (6.4-8.2) Albumin 3.2 g/dL (3.4-5.0) Albumin/Globulin Ratio 1.1 (1.0-1.7) Assessment and Plan Assessmemt and Plan Problems Medical Problems: (1) Hypokalemia Status: Acute (2) Lactic acidosis Status: Acute (3) Syncope and collapse Status: Acute Comment Review of Relevant I have reviewed the following items carmelina (where applicable) has been applied. Labs Laboratory Tests Test 11/20/19 23:15 11/21/19 00:21 11/21/19 01:55 11/21/19 02:37 White Blood Count 9.8 x10^3/uL (4.0-11.0) Red Blood Count 4.32 x10^6/uL (3.50-5.40) Hemoglobin 12.9 g/dL (12.0-15.5) Hematocrit 38.6 % (36.0-47.0) Mean Corpuscular Volume 89 fL (79-100) Mean Corpuscular Hemoglobin 30 pg (25-35) Mean Corpuscular Hemoglobin Concent 33 g/dL (31-37) Red Cell Distribution Width 13.2 % (11.5-14.5) Platelet Count 255 x10^3/uL (140-400) Neutrophils (%) (Auto) 34 % (31-73) Lymphocytes (%) (Auto) 51 % (24-48) Monocytes (%) (Auto) 8 % (0-9) Eosinophils (%) (Auto) 7 % (0-3) Basophils (%) (Auto) 0 % (0-3) Neutrophils # (Auto) 3.3 x10^3/uL (1.8-7.7) Lymphocytes # (Auto) 5.0 x10^3/uL (1.0-4.8) Monocytes # (Auto) 0.8 x10^3/uL (0.0-1.1) Eosinophils # (Auto) 0.7 x10^3/uL (0.0-0.7) Basophils # (Auto) 0.0 x10^3/uL (0.0-0.2) Lactic Acid Level 2.7 mmol/L (0.4-2.0) 0.7 mmol/L (0.4-2.0) D-Dimer (Anel) < 0.27 ug/mlFEU Sodium Level 146 mmol/L (136-145) Potassium Level 2.7 mmol/L (3.5-5.1) Chloride Level 112 mmol/L (98-107) Carbon Dioxide Level 26 mmol/L (21-32) Anion Gap 8 (6-14) Blood Urea Nitrogen 11 mg/dL (7-20) Creatinine 0.6 mg/dL (0.6-1.0) Estimated GFR (Cockcroft-Gault) 105.4 BUN/Creatinine Ratio 18 (6-20) Glucose Level 83 mg/dL (70-99) Calcium Level 7.2 mg/dL (8.5-10.1) Magnesium Level 1.4 mg/dL (1.8-2.4) Total Bilirubin 0.1 mg/dL (0.2-1.0) Aspartate Amino Transf (AST/SGOT) 13 U/L (15-37) Alanine Aminotransferase (ALT/SGPT) 14 U/L (14-59) Alkaline Phosphatase 60 U/L (46-116) Troponin I Quantitative < 0.017 ng/mL (0.000-0.055) Total Protein 5.5 g/dL (6.4-8.2) Albumin 2.8 g/dL (3.4-5.0) Albumin/Globulin Ratio 1.0 (1.0-1.7) Thyroid Stimulating Hormone (TSH) 14.948 uIU/mL (0.358-3.74) Urine Collection Type Unknown Urine Color Yellow Urine Clarity Clear Urine pH 7.0 Urine Specific [place] 1.015 Urine Protein Negative mg/dL (NEG-TRACE) Urine Glucose (UA) Negative mg/dL (NEG) Urine Ketones (Stick) Negative mg/dL (NEG) Urine Blood Negative (NEG) Urine Nitrite Negative (NEG) Urine Bilirubin Negative (NEG) Urine Urobilinogen Dipstick 0.2 mg/dL (0.2 mg/dL) Urine Leukocyte Esterase Small (NEG) Urine RBC Rare /HPF (0-2) Urine WBC 11-20 /HPF (0-4) Urine Squamous Epithelial Cells Mod /LPF Urine Bacteria Few /HPF (0-FEW) Urine Mucus Mod /LPF Test 11/21/19 15:58 11/22/19 06:45 Urine Opiates Screen Neg (NEG) Urine Methadone Screen Neg (NEG) Urine Barbiturates Neg (NEG) Urine Phencyclidine Screen Neg (NEG) Urine Amphetamine/Methamphetamine Neg (NEG) Urine Benzodiazepines Screen Pos (NEG) Urine Cocaine Screen Neg (NEG) Urine Cannabinoids Screen Neg (NEG) Urine Ethyl Alcohol Neg (NEG) White Blood Count 7.6 x10^3/uL (4.0-11.0) Red Blood Count 4.17 x10^6/uL (3.50-5.40) Hemoglobin 12.4 g/dL (12.0-15.5) Hematocrit 37.2 % (36.0-47.0) Mean Corpuscular Volume 89 fL (79-100) Mean Corpuscular Hemoglobin 30 pg (25-35) Mean Corpuscular Hemoglobin Concent 33 g/dL (31-37) Red Cell Distribution Width 13.3 % (11.5-14.5) Platelet Count 225 x10^3/uL (140-400) Neutrophils (%) (Auto) 31 % (31-73) Lymphocytes (%) (Auto) 52 % (24-48) Monocytes (%) (Auto) 8 % (0-9) Eosinophils (%) (Auto) 9 % (0-3) Basophils (%) (Auto) 1 % (0-3) Neutrophils # (Auto) 2.3 x10^3/uL (1.8-7.7) Lymphocytes # (Auto) 4.0 x10^3/uL (1.0-4.8) Monocytes # (Auto) 0.6 x10^3/uL (0.0-1.1) Eosinophils # (Auto) 0.7 x10^3/uL (0.0-0.7) Basophils # (Auto) 0.1 x10^3/uL (0.0-0.2) Sodium Level 142 mmol/L (136-145) Potassium Level 4.5 mmol/L (3.5-5.1) Chloride Level 108 mmol/L (98-107) Carbon Dioxide Level 30 mmol/L (21-32) Anion Gap 4 (6-14) Blood Urea Nitrogen 12 mg/dL (7-20) Creatinine 0.8 mg/dL (0.6-1.0) Estimated GFR (Cockcroft-Gault) 75.6 BUN/Creatinine Ratio 15 (6-20) Glucose Level 100 mg/dL (70-99) Calcium Level 8.4 mg/dL (8.5-10.1) Total Bilirubin 0.3 mg/dL (0.2-1.0) Aspartate Amino Transf (AST/SGOT) 15 U/L (15-37) Alanine Aminotransferase (ALT/SGPT) 18 U/L (14-59) Alkaline Phosphatase 70 U/L (46-116) Total Protein 6.1 g/dL (6.4-8.2) Albumin 3.2 g/dL (3.4-5.0) Albumin/Globulin Ratio 1.1 (1.0-1.7) Laboratory Tests Test 11/21/19 15:58 11/22/19 06:45 Urine Opiates Screen Neg (NEG) Urine Methadone Screen Neg (NEG) Urine Barbiturates Neg (NEG) Urine Phencyclidine Screen Neg (NEG) Urine Amphetamine/Methamphetamine Neg (NEG) Urine Benzodiazepines Screen Pos (NEG) Urine Cocaine Screen Neg (NEG) Urine Cannabinoids Screen Neg (NEG) Urine Ethyl Alcohol Neg (NEG) White Blood Count 7.6 x10^3/uL (4.0-11.0) Red Blood Count 4.17 x10^6/uL (3.50-5.40) Hemoglobin 12.4 g/dL (12.0-15.5) Hematocrit 37.2 % (36.0-47.0) Mean Corpuscular Volume 89 fL (79-100) Mean Corpuscular Hemoglobin 30 pg (25-35) Mean Corpuscular Hemoglobin Concent 33 g/dL (31-37) Red Cell Distribution Width 13.3 % (11.5-14.5) Platelet Count 225 x10^3/uL (140-400) Neutrophils (%) (Auto) 31 % (31-73) Lymphocytes (%) (Auto) 52 % (24-48) Monocytes (%) (Auto) 8 % (0-9) Eosinophils (%) (Auto) 9 % (0-3) Basophils (%) (Auto) 1 % (0-3) Neutrophils # (Auto) 2.3 x10^3/uL (1.8-7.7) Lymphocytes # (Auto) 4.0 x10^3/uL (1.0-4.8) Monocytes # (Auto) 0.6 x10^3/uL (0.0-1.1) Eosinophils # (Auto) 0.7 x10^3/uL (0.0-0.7) Basophils # (Auto) 0.1 x10^3/uL (0.0-0.2) Sodium Level 142 mmol/L (136-145) Potassium Level 4.5 mmol/L (3.5-5.1) Chloride Level 108 mmol/L (98-107) Carbon Dioxide Level 30 mmol/L (21-32) Anion Gap 4 (6-14) Blood Urea Nitrogen 12 mg/dL (7-20) Creatinine 0.8 mg/dL (0.6-1.0) Estimated GFR (Cockcroft-Gault) 75.6 BUN/Creatinine Ratio 15 (6-20) Glucose Level 100 mg/dL (70-99) Calcium Level 8.4 mg/dL (8.5-10.1) Total Bilirubin 0.3 mg/dL (0.2-1.0) Aspartate Amino Transf (AST/SGOT) 15 U/L (15-37) Alanine Aminotransferase (ALT/SGPT) 18 U/L (14-59) Alkaline Phosphatase 70 U/L (46-116) Total Protein 6.1 g/dL (6.4-8.2) Albumin 3.2 g/dL (3.4-5.0) Albumin/Globulin Ratio 1.1 (1.0-1.7) Medications Current Medications Sodium Chloride 1,000 ml @ 1,000 mls/hr 1X ONCE IV Last administered on 11/20/19at 23:30; Start 11/21/19 at 00:30; Stop 11/21/19 at 01:29; Status DC Sodium Chloride 1,000 ml @ 1,000 mls/hr 1X ONCE IV Last administered on 11/21/19at 01:26; Start 11/21/19 at 01:30; Stop 11/21/19 at 02:29; Status DC Potassium Chloride (Klor-Con) 40 meq 1X ONCE PO Last administered on 11/21/19at 02:09; Start 11/21/19 at 02:00; Stop 11/21/19 at 02:01; Status DC Ondansetron HCl (Zofran) 4 mg PRN Q8HRS PRN IV NAUSEA/VOMITING 1ST CHOICE; Start 11/21/19 at 02:00; Stop 11/21/19 at 13:51; Status DC Acetaminophen (Tylenol) 650 mg PRN Q4HRS PRN PO FEVER Last administered on 11/21/19at 02:09; Start 11/21/19 at 02:00; Stop 11/21/19 at 13:51; Status DC Ciprofloxacin (Cipro) 500 mg BID ONCE PO Last administered on 11/21/19at 03:25; Start 11/21/19 at 03:00; Stop 11/21/19 at 03:01; Status DC Alprazolam (Xanax) 0.5 mg 1X ONCE PO Last administered on 11/21/19at 03:25; Start 11/21/19 at 03:30; Stop 11/21/19 at 03:31; Status DC Ketorolac Tromethamine (Toradol 30mg Vial) 30 mg PRN Q8HRS PRN IVP PAIN Last administered on 11/21/19at 20:40; Start 11/21/19 at 08:15; Stop 11/26/19 at 08:14 Magnesium Sulfate 50 ml @ 25 mls/hr 1X ONCE IV Last administered on 11/21/19at 09:17; Start 11/21/19 at 09:00; Stop 11/21/19 at 10:59; Status DC Alprazolam (Xanax) 0.5 mg BID PO ; Start 11/21/19 at 13:00; Stop 11/21/19 at 15:33; Status DC Sodium Chloride (Normal Saline Flush) 3 ml QSHIFT PRN IV AFTER MEDS AND BLOOD DRAWS; Start 11/21/19 at 14:00 Sodium Chloride 1,000 ml @ 100 mls/hr Q10H IV Last administered on 11/21/19at 16:38; Start 11/21/19 at 13:47 Ondansetron HCl (Zofran) 4 mg PRN Q4HRS PRN IV NAUSEA/VOMITING; Start 11/21/19 at 14:00 Acetaminophen (Tylenol) 650 mg PRN Q4HRS PRN PO TEMP OVER 100.4F OR MILD PAIN; Start 11/21/19 at 14:00 Al Hydroxide/Mg Hydroxide (Mylanta Plus Xs) 30 ml PRN DAILY PRN PO HEARTBURN / GAS; Start 11/21/19 at 14:00 Docusate Sodium (Colace) 100 mg PRN BID PRN PO CONSTIPATION; Start 11/21/19 at 14:00 Albuterol Sulfate (Ventolin Neb Soln) 2.5 mg PRN Q4HRS PRN NEB SHORTNESS OF BR EATH; Start 11/21/19 at 14:00 Guaifenesin (Robitussin) 200 mg PRN Q4HRS PRN PO COUGH; Start 11/21/19 at 14:00 Enoxaparin Sodium (Lovenox 40mg Syringe) 40 mg Q24H SQ Last administered on 11/21/19at 16:41; Start 11/21/19 at 14:00 Alprazolam (Xanax) 0.5 mg PRN BID PRN PO ANXIETY Last administered on 11/21/19at 20:39; Start 11/21/19 at 15:45 Acetaminophen/ Hydrocodone Bitart (Lortab 5/325) 1 tab PRN Q6HRS PRN PO PAIN Last administered on 11/22/19at 05:57; Start 11/21/19 at 15:45 Active Scripts Active Reported Xanax (Alprazolam) 0.5 Mg Tablet 1 Tab PO BID Vitals/I & O Vital Sign - Last 24 Hours 11/21/19 11/21/19 11/21/19 11/21/19 14:35 14:40 16:42 19:00 Temp 98.4 98.4 Pulse 86 86 73 Resp 14 18 B/P (MAP) 148/94 (112) 134/75 (94) 132/81 (98) Pulse Ox 96 O2 Delivery Room Air Room Air 11/21/19 11/21/19 11/21/19 11/21/19 19:02 19:47 23:00 23:02 Temp 98.2 98.2 Pulse 79 81 Resp 14 18 18 B/P (MAP) 139/73 (95) 148/95 (112) Pulse Ox 95 93 O2 Delivery Room Air Room Air Room Air Room Air 11/21/19 11/21/19 11/22/19 11/22/19 23:04 23:28 00:28 03:00 Temp 98.3 98.3 Pulse 83 56 Resp 18 18 B/P (MAP) 139/87 (104) 140/93 (109) 142/98 (113) 138/95 (109) Pulse Ox 94 96 96 95 O2 Delivery Room Air Room Air Room Air Room Air 11/22/19 11/22/19 11/22/19 11/22/19 05:57 06:43 07:00 08:00 Temp 98.0 98.0 Pulse 69 B/P (MAP) 119/72 (88) Pulse Ox 95 95 95 O2 Delivery Room Air Room Air Room Air Room Air Intake and Output 11/21/19 11/21/19 11/22/19 15:00 23:00 07:00 Intake Total 420 ml 700 ml 1660 ml Balance 420 ml 700 ml 1660 ml RAYMON MELVIN MD Nov 22, 2019 11:40
[2019-11-22 11:49] VITALS: BP 149/79
--- NOTE | 2019-11-22 12:01 | PDOC3 ---
Discharge Summary Date of Admission: Nov 21, 2019 Date of Discharge: Nov 22, 2019 Follow-Up: 3-5 days Admitting Diagnosis comment: DISCHARGE DX Assessment/Plan Impression: Syncope and collapse likely etoh related ALCOHOL OVER INDULGENCE Hypokalemia Lactic acidosis SEC ETOH ORTHOSTASIS tobacco abuse disorder HYPOMAGNESEMIA ADMITTED CT HEAD Neurology [id number] OK WITH D/C tele neurochecks q 4 hrs dvt prophylaxis orthostatic bp bid iv fluid support CARDIOLOGY OK WITH D/C 11/22 EEG as out patient base and FU with Neurology. MG NOW D/C TODAY IF LABS OK D/W DR SOLANO ON UNIT D/C PLANNING 28 MIN Vitals Vitals Vital Signs Date Time Temp Pulse Resp B/P (MAP) Pulse Ox O2 Delivery O2 Flow Rate FiO2 11/22/19 08:00 Room Air 11/22/19 07:00 98.0 69 119/72 (88) 95 98.0 11/22/19 03:00 18 Physical Exam General: Alert, Oriented X3, Cooperative, No acute distress Heart: Regular rate, Normal S1 Lungs: Clear Abdomen: Normal bowel sounds, Soft, No tenderness Extremities: No cyanosis FINAL DIAGNOSIS Problems Medical Problems: (1) Hypokalemia Status: Acute (2) Lactic acidosis Status: Acute (3) Syncope and collapse Status: Acute Brief Hospital Course Ms. Munguia is a 49 old [sex] who presented with [SYNCOPE . ETOH INTAKE ] CONDITION AT DISCHARGE: Improved Discharge Medications Current Medications Sodium Chloride 1,000 ml @ 1,000 mls/hr 1X ONCE IV Last administered on 11/20/19at 23:30; Start 11/21/19 at 00:30; Stop 11/21/19 at 01:29; Status DC Sodium Chloride 1,000 ml @ 1,000 mls/hr 1X ONCE IV Last administered on 11/21/19at 01:26; Start 11/21/19 at 01:30; Stop 11/21/19 at 02:29; Status DC Potassium Chloride (Klor-Con) 40 meq 1X ONCE PO Last administered on 11/21/19at 02:09; Start 11/21/19 at 02:00; Stop 11/21/19 at 02:01; Status DC Ondansetron HCl (Zofran) 4 mg PRN Q8HRS PRN IV NAUSEA/VOMITING 1ST CHOICE; Start 11/21/19 at 02:00; Stop 11/21/19 at 13:51; Status DC Acetaminophen (Tylenol) 650 mg PRN Q4HRS PRN PO FEVER Last administered on 11/21/19at 02:09; Start 11/21/19 at 02:00; Stop 11/21/19 at 13:51; Status DC Ciprofloxacin (Cipro) 500 mg BID ONCE PO Last administered on 11/21/19at 03:25; Start 11/21/19 at 03:00; Stop 11/21/19 at 03:01; Status DC Alprazolam (Xanax) 0.5 mg 1X ONCE PO Last administered on 11/21/19at 03:25; Start 11/21/19 at 03:30; Stop 11/21/19 at 03:31; Status DC Ketorolac Tromethamine (Toradol 30mg Vial) 30 mg PRN Q8HRS PRN IVP PAIN Last administered on 11/21/19at 20:40; Start 11/21/19 at 08:15; Stop 11/26/19 at 08:14 Magnesium Sulfate 50 ml @ 25 mls/hr 1X ONCE IV Last administered on 11/21/19at 09:17; Start 11/21/19 at 09:00; Stop 11/21/19 at 10:59; Status DC Alprazolam (Xanax) 0.5 mg BID PO ; Start 11/21/19 at 13:00; Stop 11/21/19 at 15:33; Status DC Sodium Chloride (Normal Saline Flush) 3 ml QSHIFT PRN IV AFTER MEDS AND BLOOD DRAWS; Start 11/21/19 at 14:00 Sodium Chloride 1,000 ml @ 100 mls/hr Q10H IV Last administered on 11/21/19at 16:38; Start 11/21/19 at 13:47 Ondansetron HCl (Zofran) 4 mg PRN Q4HRS PRN IV NAUSEA/VOMITING; Start 11/21/19 at 14:00 Acetaminophen (Tylenol) 650 mg PRN Q4HRS PRN PO TEMP OVER 100.4F OR MILD PAIN; Start 11/21/19 at 14:00 Al Hydroxide/Mg Hydroxide (Mylanta Plus Xs) 30 ml PRN DAILY PRN PO HEARTBURN / GAS; Start 11/21/19 at 14:00 Docusate Sodium (Colace) 100 mg PRN BID PRN PO CONSTIPATION; Start 11/21/19 at 14:00 Albuterol Sulfate (Ventolin Neb Soln) 2.5 mg PRN Q4HRS PRN NEB SHORTNESS OF BREATH; Start 11/21/19 at 14:00 Guaifenesin (Robitussin) 200 mg PRN Q4HRS PRN PO COUGH; Start 11/21/19 at 14:00 Enoxaparin Sodium (Lovenox 40mg Syringe) 40 mg Q24H SQ Last administered on 11/21/19at 16:41; Start 11/21/19 at 14:00 Alprazolam (Xanax) 0.5 mg PRN BID PRN PO ANXIETY Last administered on 11/21/19at 20:39; Start 11/21/19 at 15:45 Acetaminophen/ Hydrocodone Bitart (Lortab 5/325) 1 tab PRN Q6HRS PRN PO PAIN Last administered on 11/22/19at 05:57; Start 11/21/19 at 15:45 Active Scripts Active Reported Xanax (Alprazolam) 0.5 Mg Tablet 1 Tab PO BID Vital Signs Vital Signs Date Time Temp Pulse Resp B/P (MAP) Pulse Ox O2 Delivery O2 Flow Rate FiO2 11/22/19 11:49 98.2 78 14 149/79 (102) 98 Room Air 98.2 Labs Laboratory Tests Test 11/20/19 23:15 11/21/19 00:21 11/21/19 01:55 11/21/19 02:37 White Blood Count 9.8 x10^3/uL (4.0-11.0) Red Blood Count 4.32 x10^6/uL (3.50-5.40) Hemoglobin 12.9 g/dL (12.0-15.5) Hematocrit 38.6 % (36.0-47.0) Mean Corpuscular Volume 89 fL (79-100) Mean Corpuscular Hemoglobin 30 pg (25-35) Mean Corpuscular Hemoglobin Concent 33 g/dL (31-37) Red Cell Distribution Width 13.2 % (11.5-14.5) Platelet Count 255 x10^3/uL (140-400) Neutrophils (%) (Auto) 34 % (31-73) Lymphocytes (%) (Auto) 51 % (24-48) Monocytes (%) (Auto) 8 % (0-9) Eosinophils (%) (Auto) 7 % (0-3) Basophils (%) (Auto) 0 % (0-3) Neutrophils # (Auto) 3.3 x10^3/uL (1.8-7.7) Lymphocytes # (Auto) 5.0 x10^3/uL (1.0-4.8) Monocytes # (Auto) 0.8 x10^3/uL (0.0-1.1) Eosinophils # (Auto) 0.7 x10^3/uL (0.0-0.7) Basophils # (Auto) 0.0 x10^3/uL (0.0-0.2) Lactic Acid Level 2.7 mmol/L (0.4-2.0) 0.7 mmol/L (0.4-2.0) D-Dimer (Anel) < 0.27 ug/mlFEU Sodium Level 146 mmol/L (136-145) Potassium Level 2.7 mmol/L (3.5-5.1) Chloride Level 112 mmol/L (98-107) Carbon Dioxide Level 26 mmol/L (21-32) Anion Gap 8 (6-14) Blood Urea Nitrogen 11 mg/dL (7-20) Creatinine 0.6 mg/dL (0.6-1.0) Estimated GFR (Cockcroft-Gault) 105.4 BUN/Creatinine Ratio 18 (6-20) Glucose Level 83 mg/dL (70-99) Calcium Level 7.2 mg/dL (8.5-10.1) Magnesium Level 1.4 mg/dL (1.8-2.4) Total Bilirubin 0.1 mg/dL (0.2-1.0) Aspartate Amino Transf (AST/SGOT) 13 U/L (15-37) Alanine Aminotransferase (ALT/SGPT) 14 U/L (14-59) Alkaline Phosphatase 60 U/L (46-116) Troponin I Quantitative < 0.017 ng/mL (0.000-0.055) Total Protein 5.5 g/dL (6.4-8.2) Albumin 2.8 g/dL (3.4-5.0) Albumin/Globulin Ratio 1.0 (1.0-1.7) Thyroid Stimulating Hormone (TSH) 14.948 uIU/mL (0.358-3.74) Urine Collection Type Unknown Urine Color Yellow Urine Clarity Clear Urine pH 7.0 Urine Specific [place] 1.015 Urine Protein Negative mg/dL (NEG-TRACE) Urine Glucose (UA) Negative mg/dL (NEG) Urine Ketones (Stick) Negative mg/dL (NEG) Urine Blood Negative (NEG) Urine Nitrite Negative (NEG) Urine Bilirubin Negative (NEG) Urine Urobilinogen Dipstick 0.2 mg/dL (0.2 mg/dL) Urine Leukocyte Esterase Small (NEG) Urine RBC Rare /HPF (0-2) Urine WBC 11-20 /HPF (0-4) Urine Squamous Epithelial Cells Mod /LPF Urine Bacteria Few /HPF (0-FEW) Urine Mucus Mod /LPF Test 11/21/19 15:58 11/22/19 06:45 Urine Opiates Screen Neg (NEG) Urine Methadone Screen Neg (NEG) Urine Barbiturates Neg (NEG) Urine Phencyclidine Screen Neg (NEG) Urine Amphetamine/Methamphetamine Neg (NEG) Urine Benzodiazepines Screen Pos (NEG) Urine Cocaine Screen Neg (NEG) Urine Cannabinoids Screen Neg (NEG) Urine Ethyl Alcohol Neg (NEG) White Blood Count 7.6 x10^3/uL (4.0-11.0) Red Blood Count 4.17 x10^6/uL (3.50-5.40) Hemoglobin 12.4 g/dL (12.0-15.5) Hematocrit 37.2 % (36.0-47.0) Mean Corpuscular Volume 89 fL (79-100) Mean Corpuscular Hemoglobin 30 pg (25-35) Mean Corpuscular Hemoglobin Concent 33 g/dL (31-37) Red Cell Distribution Width 13.3 % (11.5-14.5) Platelet Count 225 x10^3/uL (140-400) Neutrophils (%) (Auto) 31 % (31-73) Lymphocytes (%) (Auto) 52 % (24-48) Monocytes (%) (Auto) 8 % (0-9) Eosinophils (%) (Auto) 9 % (0-3) Basophils (%) (Auto) 1 % (0-3) Neutrophils # (Auto) 2.3 x10^3/uL (1.8-7.7) Lymphocytes # (Auto) 4.0 x10^3/uL (1.0-4.8) Monocytes # (Auto) 0.6 x10^3/uL (0.0-1.1) Eosinophils # (Auto) 0.7 x10^3/uL (0.0-0.7) Basophils # (Auto) 0.1 x10^3/uL (0.0-0.2) Sodium Level 142 mmol/L (136-145) Potassium Level 4.5 mmol/L (3.5-5.1) Chloride Level 108 mmol/L (98-107) Carbon Dioxide Level 30 mmol/L (21-32) Anion Gap 4 (6-14) Blood Urea Nitrogen 12 mg/dL (7-20) Creatinine 0.8 mg/dL (0.6-1.0) Estimated GFR (Cockcroft-Gault) 75.6 BUN/Creatinine Ratio 15 (6-20) Glucose Level 100 mg/dL (70-99) Calcium Level 8.4 mg/dL (8.5-10.1) Total Bilirubin 0.3 mg/dL (0.2-1.0) Aspartate Amino Transf (AST/SGOT) 15 U/L (15-37) Alanine Aminotransferase (ALT/SGPT) 18 U/L (14-59) Alkaline Phosphatase 70 U/L (46-116) Total Protein 6.1 g/dL (6.4-8.2) Albumin 3.2 g/dL (3.4-5.0) Albumin/Globulin Ratio 1.1 (1.0-1.7) Laboratory Tests Test 11/21/19 15:58 11/22/19 06:45 Urine Opiates Screen Neg (NEG) Urine Methadone Screen Neg (NEG) Urine Barbiturates Neg (NEG) Urine Phencyclidine Screen Neg (NEG) Urine Amphetamine/Methamphetamine Neg (NEG) Urine Benzodiazepines Screen Pos (NEG) Urine Cocaine Screen Neg (NEG) Urine Cannabinoids Screen Neg (NEG) Urine Ethyl Alcohol Neg (NEG) White Blood Count 7.6 x10^3/uL (4.0-11.0) Red Blood Count 4.17 x10^6/uL (3.50-5.40) Hemoglobin 12.4 g/dL (12.0-15.5) Hematocrit 37.2 % (36.0-47.0) Mean Corpuscular Volume 89 fL (79-100) Mean Corpuscular Hemoglobin 30 pg (25-35) Mean Corpuscular Hemoglobin Concent 33 g/dL (31-37) Red Cell Distribution Width 13.3 % (11.5-14.5) Platelet Count 225 x10^3/uL (140-400) Neutrophils (%) (Auto) 31 % (31-73) Lymphocytes (%) (Auto) 52 % (24-48) Monocytes (%) (Auto) 8 % (0-9) Eosinophils (%) (Auto) 9 % (0-3) Basophils (%) (Auto) 1 % (0-3) Neutrophils # (Auto) 2.3 x10^3/uL (1.8-7.7) Lymphocytes # (Auto) 4.0 x10^3/uL (1.0-4.8) Monocytes # (Auto) 0.6 x10^3/uL (0.0-1.1) Eosinophils # (Auto) 0.7 x10^3/uL (0.0-0.7) Basophils # (Auto) 0.1 x10^3/uL (0.0-0.2) Sodium Level 142 mmol/L (136-145) Potassium Level 4.5 mmol/L (3.5-5.1) Chloride Level 108 mmol/L (98-107) Carbon Dioxide Level 30 mmol/L (21-32) Anion Gap 4 (6-14) Blood Urea Nitrogen 12 mg/dL (7-20) Creatinine 0.8 mg/dL (0.6-1.0) Estimated GFR (Cockcroft-Gault) 75.6 BUN/Creatinine Ratio 15 (6-20) Glucose Level 100 mg/dL (70-99) Calcium Level 8.4 mg/dL (8.5-10.1) Total Bilirubin 0.3 mg/dL (0.2-1.0) Aspartate Amino Transf (AST/SGOT) 15 U/L (15-37) Alanine Aminotransferase (ALT/SGPT) 18 U/L (14-59) Alkaline Phosphatase 70 U/L (46-116) Total Protein 6.1 g/dL (6.4-8.2) Albumin 3.2 g/dL (3.4-5.0) Albumin/Globulin Ratio 1.1 (1.0-1.7) Allergies Allergies Coded Allergies Type Severity Reaction Last Updated Verified egg Allergy Severe 11/21/19 Yes shellfish derived Allergy Severe Swelling 11/21/19 Yes Iodinated Contrast Media Adverse Reaction Intermediate 11/21/19 Yes Penicillins Adverse Reaction Intermediate 11/21/19 Yes Sulfa (Sulfonamide Antibiotics) Adverse Reaction Intermediate 11/21/19 Yes Disposition/Orders: D/C to Home RAYMON MELVIN MD Nov 22, 2019 12:01
[2019-11-22] MEDS ORDERED: ACET325T9 PO (12:03)
[2019-11-22] MEDS ORDERED: GUAI100L12 PO (12:03)
[2019-11-22] MEDS ORDERED: MAG30ORA2 PO (12:03)
[2019-11-22] MEDS ORDERED: PANT40TA77 PO (12:03)
--- NOTE | 2019-11-22 12:04 | DISCH ---
DISCHARGE INSTRUCTIONS Condition on Discharge Condition on Discharge: Stable Activity After Discharge Activity Instructions for Disc: Activity as tolerated Lifting Instructions after Dis: No heavy lifting, No pulling or pushing Driving Instructions after Dis: Do not drive Diet after Discharge Diet after Discharge: Regular Liquid Texture: Thin Liquid Checks after Discharge Checks after discharge: Check blood press - daily Contacting the [facility] after DC Call your doctor for: If your condition worsens Warfarin Follow-Up Warfarin Follow UP: AVOID EXCESSIVE ALCOHOL INTAKE RAYMON MELVIN MD Nov 22, 2019 12:04
[2019-11-22 12:09] LABS: FREE T4 0.88 ng/dL (0.76-1.46)
--- NOTE | 2019-11-22 13:30 | PDOC ---
PROGRESS NOTES Assessment Assessment Syncope. Hypotension event. Lactic acidosis. Hypokalemia. UTI. Seizure evaluation, but no epileptic seizure found at the present time. Hypothyroidism Smoking. Over weight. RECOMMENDATIONS/PLAN: HCT is performed and is negative. Consulted cardiology. EEG as out patient base and FU with Neurology. FU with PCP for hypothyroidism treatmnet. Discussed with her at bedside again on 11/22/19. SUBJECTIVE: Feeling better. HISTORY OF THE PRESENT ILLNESS: This is a 49-year-old female patient who was brought to the ER of [facility] due to a syncopal spell and hypotension event. Per her , [place] [employer] [place] and subsequently became short of breath, nauseous, dizzy and weak. JUST ATE AND CONSUMED ETOH states she passed out for approximately 30 seconds or less than a minute as eyes open unresponsive sitting in chair floopy likely. She had significant sweating after syncopal episode. No sensory or motor deficits. No seizure nor postictal state. Her BP was said 70/40s. Her reported that she had a similar episode about 2/5 years ago. No similar episode recurred since in the hospital. Past Medical History GI: GERD Hepatobiliary: No pertinent hx Family History High Cholestrol Social History Smoke: <1 pack per day ALCOHOL: social Drugs: denied. Allergies Coded Allergies: egg (Verified Allergy, Severe, 11/21/19) shellfish derived (Verified Allergy, Severe, Swelling, 11/21/19) Iodinated Contrast Media (Verified Adverse Reaction, Intermediate, 11/21/19) Penicillins (Verified Adverse Reaction, Intermediate, 11/21/19) Sulfa (Sulfonamide Antibiotics) (Verified Adverse Reaction, Intermediate, 11/21/19) PAST SURGERY HISTORY: No major surgery recently. MEDICATIONS: Refer to [facility] REVIEW OF SYSTEMS: Constitutional: No malnutrition, weight loss, cachexia. Head: No traumatic brain or head injury. Skin: No edema, or rash. Ear: No infection. Eyes: No vision loss or color blindness. Nose: No bleeding or purulent discharges. Hearing: No hearing decrease. Neck: No injury. Breast: No history of cancer, masses,or discharges. Cardiac: No DC, arrhythmia,claudication. Pulmonary: Smoking. GI: GERD. Urinary/genital: UTI. Endocrinologic: No cousin face, craniofacial dysmorphism, polydactyly. Skeletomuscular: No muscular atrophy, deformity. Neurological: see HP. Psychiatric: Denies drug use/abuse. Otherwise, not [id number] review of systems. PHYSICAL EXAMINATION: General appearance is in subacute distress. HEENT: Normocephalic and nontraumatic. Eyes, nose, ears, and throat are unremarkable. Neck is supple. No lymphadenopathy. No bruits are heard over the carotid artery. No crepitus. Cardiovascular: S1, S2, regular rate and rhythm. Pulmonary: Clear to auscultation bilaterally. Abdomen: Bowel sounds are positive. Extremities: No rash, lesions, or edema. No restriction of range of motion NEUROLOGICAL EXAMINATION: Alert Oriented to time, place and person. PERRL. EOMI. CN: no focal findings. Muscle tone: within normal. Muscle strength: 5 DTR: 2 Plantar reflex: Flexor response bilaterally Gait: at her baseline normal. Sensory exam: no abnormal findings. No cerebellar signs elicited. F-T-N test accurate. Objective Objective Vital Signs Date Time Temp Pulse Resp B/P (MAP) Pulse Ox O2 Delivery O2 Flow Rate FiO2 11/22/19 11:49 98.2 78 14 149/79 (102) 98 Room Air 98.2 Intake and Output 11/22/19 07:00 Intake Total 2780 ml Balance 2780 ml Intake Oral 2080 ml IV Total 700 ml # Voids 6 # Bowel Movements 2 Vitals Signs Vitals VS - Last 72 Hours, by Label Date Time Temp Pulse Resp B/P (MAP) Pulse Ox O2 Delivery O2 Flow Rate FiO2 11/22/19 11:49 98.2 78 14 149/79 (102) 98 Room Air 98.2 11/22/19 08:00 Room Air 11/22/19 07:00 98.0 69 119/72 (88) 95 Room Air 98.0 11/22/19 06:43 95 Room Air 11/22/19 05:57 95 Room Air 11/22/19 03:00 98.3 56 18 140/93 (109) 95 Room Air 98.3 142/98 (113) 138/95 (109) 11/22/19 00:28 96 Room Air 11/21/19 23:28 96 Room Air 11/21/19 23:04 83 18 139/87 (104) 94 Room Air 11/21/19 23:02 81 18 148/95 (112) 93 Room Air 11/21/19 23:00 98.2 79 18 139/73 (95) 95 Room Air 98.2 11/21/19 19:47 Room Air 11/21/19 19:02 14 Room Air 11/21/19 19:00 98.4 73 18 132/81 (98) 96 Room Air 98.4 11/21/19 16:42 14 Room Air 11/21/19 14:40 86 134/75 (94) 11/21/19 14:35 86 148/94 (112) 11/21/19 11:20 98.1 80 16 146/95 (112) 95 Room Air 98.1 11/21/19 08:00 Room Air 11/21/19 07:26 98.2 86 14 138/84 (102) 95 Room Air 98.2 Laboratory Laboratory Laboratory Tests Test 11/21/19 15:58 11/22/19 06:45 Urine Opiates Screen Neg (NEG) Urine Methadone Screen Neg (NEG) Urine Barbiturates Neg (NEG) Urine Phencyclidine Screen Neg (NEG) Urine Amphetamine/Methamphetamine Neg (NEG) Urine Benzodiazepines Screen Pos (NEG) Urine Cocaine Screen Neg (NEG) Urine Cannabinoids Screen Neg (NEG) Urine Ethyl Alcohol Neg (NEG) White Blood Count 7.6 x10^3/uL (4.0-11.0) Red Blood Count 4.17 x10^6/uL (3.50-5.40) Hemoglobin 12.4 g/dL (12.0-15.5) Hematocrit 37.2 % (36.0-47.0) Mean Corpuscular Volume 89 fL (79-100) Mean Corpuscular Hemoglobin 30 pg (25-35) Mean Corpuscular Hemoglobin Concent 33 g/dL (31-37) Red Cell Distribution Width 13.3 % (11.5-14.5) Platelet Count 225 x10^3/uL (140-400) Neutrophils (%) (Auto) 31 % (31-73) Lymphocytes (%) (Auto) 52 % (24-48) Monocytes (%) (Auto) 8 % (0-9) Eosinophils (%) (Auto) 9 % (0-3) Basophils (%) (Auto) 1 % (0-3) Neutrophils # (Auto) 2.3 x10^3/uL (1.8-7.7) Lymphocytes # (Auto) 4.0 x10^3/uL (1.0-4.8) Monocytes # (Auto) 0.6 x10^3/uL (0.0-1.1) Eosinophils # (Auto) 0.7 x10^3/uL (0.0-0.7) Basophils # (Auto) 0.1 x10^3/uL (0.0-0.2) Sodium Level 142 mmol/L (136-145) Potassium Level 4.5 mmol/L (3.5-5.1) Chloride Level 108 mmol/L (98-107) Carbon Dioxide Level 30 mmol/L (21-32) Anion Gap 4 (6-14) Blood Urea Nitrogen 12 mg/dL (7-20) Creatinine 0.8 mg/dL (0.6-1.0) Estimated GFR (Cockcroft-Gault) 75.6 BUN/Creatinine Ratio 15 (6-20) Glucose Level 100 mg/dL (70-99) Calcium Level 8.4 mg/dL (8.5-10.1) Magnesium Level 2.2 mg/dL (1.8-2.4) Total Bilirubin 0.3 mg/dL (0.2-1.0) Aspartate Amino Transf (AST/SGOT) 15 U/L (15-37) Alanine Aminotransferase (ALT/SGPT) 18 U/L (14-59) Alkaline Phosphatase 70 U/L (46-116) Total Protein 6.1 g/dL (6.4-8.2) Albumin 3.2 g/dL (3.4-5.0) Albumin/Globulin Ratio 1.1 (1.0-1.7) Free Thyroxine 0.88 ng/dL (0.76-1.46) Free Triiodothyronine (T3) pg/mL 2.87 pg/mL (2.18-3.98) Medication Medications Current Medications Acetaminophen (Tylenol) 650 mg PRN Q4HRS PRN PO TEMP OVER 100.4F OR MILD PAIN; Start 11/21/19 at 14:00 Acetaminophen/ Hydrocodone Bitart (Lortab 5/325) 1 tab PRN Q6HRS PRN PO PAIN Last administered on 11/22/19at 05:57; Start 11/21/19 at 15:45 Al Hydroxide/Mg Hydroxide (Mylanta Plus Xs) 30 ml PRN DAILY PRN PO HEARTBURN / GAS; Start 11/21/19 at 14:00 Albuterol Sulfate (Ventolin Neb Soln) 2.5 mg PRN Q4HRS PRN NEB SHORTNESS OF BREATH; Start 11/21/19 at 14:00 Alprazolam (Xanax) 0.5 mg PRN BID PRN PO ANXIETY Last administered on 11/21/19at 20:39; Start 11/21/19 at 15:45 Docusate Sodium (Colace) 100 mg PRN BID PRN PO CONSTIPATION; Start 11/21/19 at 14:00 Enoxaparin Sodium (Lovenox 40mg Syringe) 40 mg Q24H SQ Last administered on 11/21/19at 16:41; Start 11/21/19 at 14:00 Guaifenesin (Robitussin) 200 mg PRN Q4HRS PRN PO COUGH; Start 11/21/19 at 14:00 Ondansetron HCl (Zofran) 4 mg PRN Q4HRS PRN IV NAUSEA/VOMITING; Start 11/21/19 at 14:00 Sodium Chloride 1,000 ml @ 100 mls/hr Q10H IV Last administered on 11/21/19at 16:38; Start 11/21/19 at 13:47 Sodium Chloride (Normal Saline Flush) 3 ml QSHIFT PRN IV AFTER MEDS AND BLOOD DRAWS; Start 11/21/19 at 14:00 Comment Review of Relevant I have reviewed the following items carmelina (where applicable) has been applied. SCAR ANN MD Nov 22, 2019 13:30
--- NOTE | 2019-11-22 13:31 | NUR ---
Discharge Note: PT DISCHARGED HOME WITH SELF CARE. PT LEFT FACILITY VIA PRIVATE VEHICLE AT 1310 WITH . PT STABLE AND ALERT UPON DISCHARGE. PT PIV REMOVED FROM R WRIST WITHOUT COMPLICATIONS, BANDAGE APPLIED. PT EDUCATED ABOUT DISHCARGE INSTRUCTIONS, DISCHARGE MEDICATIONS, AND FOLLOW-UP INSTRUCTIONS, NO CONCERNS VOICED AT THIS TIME. PT LEFT WITH ALL PERSONAL BELONGINGS. BISHNU CORLEY [facility] Discharge instructions and discharge home medications reviewed with Patient and a copy given. All questions have been answered and understanding verbalized.
== END 2019-11-22 13:10 | disposition home or self-care (01) ==
LOC: ER 23:04 → 6 SOUTH 11-21 03:40
PROVIDERS: ADMIT Internal Medicine; ATTEND Internal Medicine
DX: R55 Syncope and collapse (principal); E87.2 Acidosis; E87.6 Hypokalemia; K21.9 Gastro-esophageal reflux disease without esophagitis; F17.210 Nicotine dependence, cigarettes, uncomplicated
CPT/HCPCS: 36415; 70450; 80053; 80307; 81001; 83605; 83735; 84439; 84443; 84481; 84484; 85025; 85379; 87086; 93005; 96361; 96365; 96366; 96372; 96375; 96376; 99285; G0378; J1650; J1885; J3475; J7030; 87186; G0379